=== PATIENT | female | born 1990 | race Two or more races ===

== ENCOUNTER 2020-10-26 15:18 | Emergency (ER) | payer MEDICAID, OTHER ==
--- NOTE | 2020-10-26 16:13 | EDM.PDOC ---
Scribed by Emiliana Garcia 10/26/20 1552 for Lowell Jung MD ED HPI GENERAL MEDICAL PROBLEM - General Chief Complaint: Upper Extremity Injury/Pain Stated Complaint: LEFT HAND, SWOLLEN BRUISE Time Seen by Provider: 10/26/20 15:48 Source of Information: Reports: Patient, RN, RN Notes Reviewed History Limitations: Reports: No Limitations - History of Present Illness INITIAL COMMENTS - FREE TEXT/NARRATIVE: Patient presents to ED by POV stating that she lifted a blanket with a child in it. Her left ring finger was bent backwards. She now has pain in that finger. Onset: Today Duration: Getting Worse Location: Reports: Upper Extremity, Left Quality: Reports: Ache Severity: Moderate Improves with: Reports: None Worsens with: Reports: None Associated Symptoms: Reports: No Other Symptoms Left Finger-Ring Pain Score (Numeric/FACES): 4 - Related Data Allergies Allergy/AdvReac Type Severity Reaction Status Date / Time black walnut Allergy Itching Verified 10/26/20 16:03 Home Meds: Home Meds . [No Known Home Meds] 10/26/20 [History] Past Medical History [employer] History: Reports: Endocrine/Metabolic History: Reports: Obesity/BMI 30+ Social & Family History - Family History Family Medical History: No Pertinent Family History - Living Situation & Occupation Living situation: Reports: with Family Occupation: Employed Review of Systems - Review of Systems Review Of Systems: Comprehensive ROS is negative, except as noted in HPI. ED EXAM, GENERAL - Physical Exam Exam: See Below Exam Limited By: No Limitations General Appearance: Alert, WD/WN, No Apparent Distress Head: Atraumatic, Normocephalic Neck: Normal Inspection Respiratory/Chest: No Respiratory Distress Cardiovascular: Normal Peripheral Pulses Extremities: Normal Capillary Refill, Other (Left hand 4th digit with soft tissue swelling and bruising. Tender to touch, ROM limited due to pain.). No: Joint Swelling Psychiatric: Normal Affect, Normal Mood Skin Exam: Warm, Dry, Intact ED TRAUMA EXTREMITY PROCEDURES - Splinting Left 4th Digit Splint Site: Left ring finger Pre-Procedure NV Status: Normal Post-Procedure NV Status: Normal Splint Material: Aluminum-Foam Splint Design: [employer]olar Applied & Form Fitted By: Nurse Provider Post-Splint Application NV Check: NV Status Normal, Good Position Complications: No Course - Vital Signs Last Recorded V/S: Last Vital Signs Temp 98 F 10/26/20 15:45 Pulse 93 10/26/20 15:45 Resp 16 10/26/20 15:45 BP 145/84 H 10/26/20 15:45 Pulse Ox 98 10/26/20 15:45 - Orders/Labs/Meds Orders: Active Orders 24 hr Category Date Time Status Fingers Fourth Digit Lt F3 [CR] Stat Exams 10/26/20 15:52 Taken DME for Discharge [COMM] Routine Oth 10/26/20 16:09 Ordered Departure - Departure Time of Disposition: 16:11 Disposition: Home, Self-Care 01 Condition: Good Clinical Impression: Closed fracture of distal phalanx of left ring finger Qualifiers: Encounter type: initial encounter Fracture alignment: nondisplaced Qualified Code(s): S62.665A - Nondisplaced fracture of distal phalanx of left ring finger, initial encounter for closed fracture - Discharge Information *PRESCRIPTION DRUG MONITORING PROGRAM REVIEWED*: Not Applicable *COPY OF PRESCRIPTION DRUG MONITORING REPORT IN PATIENT JAIRO: Not Applicable Instructions: Finger Fracture, Adult Forms: ED Department Discharge Additional Instructions: Rest, ice pack, and elevate injured left finger to reduce pain and swelling. Do not remove splint. Follow up in clinic next week for recheck. Tylenol as needed for pain. Follow directions on label for dosing and precautions. Sepsis Event Note (ED) - Focused Exam Vital Signs: Vital Signs Temp Pulse Resp BP Pulse Ox 10/26/20 15:45 98 F 93 16 145/84 H 98 - My Orders Last 24 Hours: My Active Orders 10/26/20 15:52 Fingers Fourth Digit Lt F3 [CR] Stat 10/26/20 16:09 DME for Discharge [COMM] Routine - Assessment/Plan Last 24 Hours: My Active Orders 10/26/20 15:52 Fingers Fourth Digit Lt F3 [CR] Stat 10/26/20 16:09 DME for Discharge [COMM] Routine I have read and agree with the documentation that has been completed regarding this visit. By signing this record, I attest that the documentation was completed in my physical presence and is an accurate record of the encounter.
--- NOTE | 2020-10-26 16:30 | CR ---
PROCEDURE INFORMATION: Exam: XR Left Finger(s) Exam date and time: 10/26/2020 4:00 PM Age: 30 years old Clinical indication: Other: Pain; Additional info: Left 4th finger injury TECHNIQUE: Imaging protocol: XR Left fingers. Views: Minimum 2 views. COMPARISON: No relevant prior studies available. FINDINGS: Bones/joints: Acute nondisplaced intra-articular fracture through the dorsal base of the 4th distal phalanx. No other osseous abnormality. No dislocation. Soft tissues: No significant focal soft tissue swelling. IMPRESSION: Acute nondisplaced intra-articular fracture through the dorsal base of the 4th distal phalanx.
== END 2020-10-26 16:28 | disposition home or self-care (01) ==
LOC: DL.ED 15:18
DX: S62.665A Nondisplaced fracture of distal phalanx of left ring finger, initial encounter for closed fracture (principal); E66.9 Obesity, unspecified; Z68.35 Body mass index [BMI] 35.0-35.9, adult; X50.0XXA Overexertion from strenuous movement or load, initial encounter
CPT/HCPCS: 73140-F3; 99283-25